=== PATIENT | male | born 1970 | race Caucasian/White ===

== ENCOUNTER 2021-12-03 07:09 | Outpatient (CLI) | payer OTHER, BC, SELFPAY ==
--- NOTE | 2021-12-03 07:15 | TELERAD_ITS ---
[address] [address] Phone:?[phone] Fax:?[phone] Referring Physician Information: Sridhar Mckeon M.D. [address] [facility] [address] Phone:?[phone] Fax:?[phone] Patient:Emili Sanchez D.O.B:?1970 Sex:?Male Phone:?[phone] [facility] MRN:?[id number] Exam Date:?12/03/2021 ? EXAM: MRI of the RIGHT SHOULDER, without contrast CLINICAL HISTORY: Right shoulder pain attributed to injury 10/16/2021. No history of previous surgery to the right shoulder. COMPARISONS: None available. TECHNICAL: MRI sequences of the right shoulder: Axials: PD, T2 Coronals: PD, STIR, T2 Sagittals: PD, T2 SEDATION: None CONTRAST: None FINDINGS: Bones: No fracture or suspicious bone marrow signal abnormality. Coracoacromial arch: Acromion: No os acromiale. Type II acromion. Acromiohumeral space: The bony distance is unremarkable. Coracohumeral space: The bony distance is unremarkable. Acromioclavicular joint: Mild to moderate degenerative changes with mild inferior hypertrophy. Coracoclavicular ligament: The coracoclavicular ligament is intact. Rotator cuff muscles/tendons: Supraspinatus: Approximately 1.4 cm in AP dimension by 0.7 cm in transverse dimension concealed low-grade partial-thickness intrasubstance tear within the supraspinatus tendon insertional footprint contacts the cortical insertional surface and is superimposed upon mild supraspinatus tendinopathy best seen on coronal series 4 images 11. No atrophy of the supraspinatus muscle. Infraspinatus: Mild tendinopathy. No atrophy of the infraspinatus muscle. Teres minor: The teres minor tendon and muscle are intact. Subscapularis: Approximately 1.0 cm in craniocaudad dimension by 2.5 cm in transverse dimension split longitudinal intrasubstance tear within the superior portion of the subscapularis tendon superimposed upon mild to moderate subscapularis tendinopathy. No atrophy of the subscapularis muscle. Labrum: Superior and posterosuperior labral fraying. Proximal biceps tendon, long head and short heads: Fraying and mild tendinopathy of the proximal long head of the biceps tendon, which is medially subluxed onto the lesser tuberosity extending into the split longitudinal intrasubstance subscapularis tendon tear best seen on axial series 3.1 images 15 through 25. The short head is intact. Glenohumeral joint: Small glenohumeral joint effusion. No full-thickness chondral defect or subchondral bone marrow edema/cystic change is seen. No convincing evidence of capsular edema or thickening although evaluation is suboptimal because of lack of joint distention. Bursae: Subacromial/subdeltoid: Mild bursitis. Subcoracoid: No convincing subcoracoid bursal thickening/bursitis. IMPRESSION: 1. Fraying and mild tendinopathy of the proximal long head of the biceps tendon, which is medially subluxed onto the lesser tuberosity extending into a split longitudinal intrasubstance subscapularis tendon tear. 2. Approximately 1.4 x 0.7 cm concealed low-grade partial-thickness intrasubstance tear within the supraspinatus tendon insertional footprint contacts the cortical insertional surface and is superimposed upon mild supraspinatus tendinopathy. 3. Mild infraspinatus tendinopathy. 4. No atrophy of the rotator cuff musculature. 5. Mild subacromial/subdeltoid bursitis. 6. Mild to moderate acromioclavicular joint osteoarthritis with mild inferior hypertrophy. 7. Small glenohumeral joint effusion. 8. Superior and posterosuperior labral fraying. RCB Electronically signed on 12/03/2021 9:03:00 AM by Cole Thomas M.D.
== END 2021-12-03 07:10 | disposition home or self-care (01) ==
PROVIDERS: PCP Family Medicine; Visit Provider Orthopaedic Surgery
DX: M25.511 Pain in right shoulder (principal); M19.011 Primary osteoarthritis, right shoulder; M25.411 Effusion, right shoulder
CPT/HCPCS: 73221

== ENCOUNTER 2022-06-09 06:23 | Day surgery (SDC) | payer OTHER, SELFPAY ==
[2022-06-09] VITALS (15 sets, daily range): BP systolic 110–125; BP diastolic 69–79; PULSE 60–72; RESP 14–16; TEMP 36.2–36.7; O2SAT 93–99; BMI 28.8
[2022-06-09] MEDS: LACTATED RINGERS 1000 ML 1,000 ML 100 ML IV ×2 (06:30→08:33)
[2022-06-09] MEDS: SODIUM CHLORIDE 0.9 % (FLUSH) 10 ML SYRINGE IVF (06:38)
[2022-06-09] MEDS: fentaNYL 100 MCG/2 ML inj IVP (08:06)
[2022-06-09] MEDS: MIDAZOLAM HCL 1 MG/ML inj IVP (08:06)
--- NOTE | 2022-06-09 08:07 | SUR.PREOP ---
TIME?OUT:?05 PT/RN/MDA?VERIFICATION?OF?SURGICAL?SITE right shoulder,?PROCEDURE nerve block,?AND?CONSENT OBTAINED?PRIOR?TO?INVASIVE?PROCEDURE.
[2022-06-09] MEDS: CEFAZOLIN 2 GM INJ IVP (08:10)
--- NOTE | 2022-06-09 09:48 | P.ORPRC_ITS ---
Procedure Note Date of procedure: 06/09/22 Procedure: PREOPERATIVE DIAGNOSIS: Right shoulder rotator cuff tear, AC joint arthrosis, biceps tendinopathy, upper subscap tear POSTOPERATIVE DIAGNOSIS: Right shoulder rotator cuff tear, AC joint arthrosis, biceps tendinopathy, upper subscap tear NAME OF OPERATION: Right shoulder arthroscopic subacromial decompression, distal clavicle excision, mini open rotator cuff repair, biceps tenodesis, subscap repair SURGEON: Sridhar Mckeon MD MANAGER STRATEGIC PARTNERSHIPS: Sangeetha Valdivia PA-C ANESTHESIA: Supraclavicular block plus general endotracheal ESTIMATED BLOOD LOSS: 5 mL COMPLICATIONS: None SPECIMENS: None DRAINS: None PREOPERATIVE ANTIBIOTICS: Ancef 2 grams INDICATIONS: The patient is a 51-year-old with a history of right shoulder pain secondary to the above diagnoses. Despite appropriate non operative management, they continue to have symptoms. Operative intervention was recommended. The risks, benefits and expected outcomes were discussed in detail. These included but were not limited to: Infection, bleeding, injury to blood vessel or nerve, venous thromboembolism. All questions were answered to their satisfaction. PROCEDURE: A supraclavicular block was placed by Anesthesia. General anesthesia was administered. The patient was placed in the high beach chair position. The right shoulder was prepped and draped in the usual sterile fashion. The glenohumeral joint was infiltrated with 20 mL of normal saline with epinephrine. The posterior portal was established, the arthroscope was introduced. The anterior portal was established, Diagnostic arthroscopy was performed with findings as follows: The biceps has a significant amount of intra-articular tendinopathy and medial instability. The anterior, posterior and superior labrum has some age-related degenerative tearing. Articular surfaces on the humeral head and glenoid are normal. There are no loose bodies. There is a near full-thickness tear of the supraspinatus and longitudinal splitting and tearing of the insertion of upper subscap. The biceps was tenotomized with the arthroscopic scissors. The arthroscope was placed in the subacromial space, the lateral portal was established. The Arthrex Friedens was used to dissect the acromion free. The CA ligament was recessed off the anterior acromion, the AC joint was exposed. The acromioplasty was performed with the bur in the posterior portal. The bur was then placed in the lateral portal and the lateral and anterior aspect of the acromion were resected. The undersurface of the distal clavicle was resected through the lateral portal. Finally, the bur was placed in the anterior portal and the remainder of the distal clavicle was resected for a total of 10 mm. An accessory anterolateral portal was placed. The subacromial/subdeltoid bursa was aggressively debrided. The few remaining fibers of the bursal surface of the insertion of the supraspinatus appear intact. Arthroscopic instruments were removed. The accessory anterolateral portal was extended proximally and distally, subcutaneous dissection was taken with electrocautery to the deltoid. The deltoid was divided in line with its fibers. The static retractor was placed. The subacromial/subdeltoid bursa was debrided with the Campos scissors. The bicipital groove was entered with cautery, delivering the biceps into the wound. A fiber link was placed in the biceps. The upper part of the lesser tuberosity was debrided with the Lempert rongeur. We released the few remaining fibers of the supraspinatus and infraspinatus, creating a full-thickness tear. The greater tuberosity was debrided to punctate bleeding bone using the arthroscopic bur and Lempert rongeur. The scorpion was used to place a FiberTape in the upper subscap and an inverted mattress fashion. This suture and the suture on the biceps replaced into a SwiveLock anchor, into the upper part of the lesser tuberosity, just off the articular surface. This completes the upper subscap repair and biceps tenodesis. Two Arthrex BioComposite SwiveLock anchors were placed just off the articular surface. Both limbs of the FiberWire and fiber tape were passed using the scorpion. A fiber link was placed in the leading edge of the rotator cuff x2. We tied the 2 central FiberWire sutures over the rotator cuff. We then proceeded with a lateral row of SwiveLock anchors x 2 crossing the FiberTape and incorporating the FiberWire and fiber link into each lateral row anchor. This provides an anatomic, watertight repair of the rotator cuff. There is no tension on the repair with the shoulder at 0? abduction. The wound was irrigated with normal saline off the pump. The deltoid was repaired with an 0 Vicryl in an interrupted [id number] fashion. Subcutaneous tissues were closed with a 3-0 Vicryl. Skin was closed with a 3-0 Monocryl in a subcuticular fashion. A dry dressing, polar care and sling were applied. Sponge and needle counts were correct x2. The patient tolerated the procedure well. There were no apparent complications. They were carefully transferred to the hospital bed and taken to the postanesthesia care unit in satisfactory condition. PLAN: The patient will be discharged to home. No active range of motion of the shoulder will be allowed for 6 weeks postoperatively. They can work on active range of motion of the elbow, wrist and fingers. They will follow up in the office next week for a wound check and an AP and transscapular Y-view of the shoulder prior to being seen.
--- NOTE | 2022-06-09 10:08 | W.ANESCHARGE ---
Anesthesia Charges Start Date/Time Anesthesia Start Date: 06/09/22 Anesthesia Start Time: 08:05 Stop Date/Time Anesthesia Stop Date: 06/09/22 Anesthesia Stop Time: 10:07 Summary Emergency: No
--- NOTE | 2022-06-09 10:46 | W.ANESCHARGE ---
Anesthesia Charges Start Date/Time Anesthesia Start Date: 06/09/22 Anesthesia Start Time: 08:05 Stop Date/Time Anesthesia Stop Date: 06/09/22 Anesthesia Stop Time: 10:07 Summary Emergency: No
--- NOTE | 2022-06-09 10:47 | P.NB_ITS ---
Nerve Block Nerve Block Time Seen by Provider: 08:05 Date Seen: 06/09/22 Type of block requested by surgeon for post-operative analgesia: supraclavicular Side: right Time out performed: Yes Verification of patient name: Yes Verification of date of : Yes Site marking: site marked Name of person performing procedure: Bassam Assistants, if any: Jamari Continuous monitoring Was continuous monitoring of O2 sat, B/P, threat monitoring analyst, recorded every 15 minutes?: Yes Procedure Checklist: sterile prep, needles and gloves Ultrasound guided. Images saved: Yes Medications given in 5ml increments after negative aspiration: Ropivicaine %: 0.5 mL: 20 Needle gauge: 22 Decadron (mg): 10 Precedex (mcg): 25 Patient tolerated procedure well: Yes Block Charges Block Charge (with Pro Fee): Brachial Plexus Use of Ultrasound Machine for Block: Yes- US Guidance/pain block
== END 2022-06-09 12:00 | disposition home or self-care (01) ==
PROVIDERS: PCP Family Medicine; Visit Provider Orthopaedic Surgery
PROC: (CPT 23412; principal; 2022-06-09 07:45)
DX: M75.101 Unspecified rotator cuff tear or rupture of right shoulder, not specified as traumatic (principal); M75.21 Bicipital tendinitis, right shoulder; M19.011 Primary osteoarthritis, right shoulder
CPT/HCPCS: 29826; 29824; 29828; 23412; 01630; 64415; 76942; C1713; J0690; J1100; J2250; J2405; J2704; J2795; J3010; J7120

== ENCOUNTER 2023-01-21 08:45 | Outpatient (RCR) | payer OTHER, SELFPAY | END 2023-03-09 10:18 | disposition home or self-care (01) | PROVIDERS: PCP Family Medicine; Visit Provider Physician Assistant Surgical | DX: Z98.890 Other specified postprocedural states (principal); Z51.89 Encounter for other specified aftercare | CPT/HCPCS: 97110; 97112; 97140; 97161; 97530 ==

== ENCOUNTER 2025-01-12 20:28 | Emergency (ER) | payer OTHER, SELFPAY ==
--- OUTSIDE RECORDS SUMMARY | 2025-01-12 20:30 | XMS_ITS | Clinical Summary ---
Author Organization [facility] er Address [address] [place] [address] Care Team Providers Care Head Inspector And Center Marker Name Role Phone Shantel Resendiz APRN Primary Care Provider Allergies Active Allergy Reactions Criticality Noted Date Comments Other 08/25/2018 Bandaide Medications Ibuprofen 200 MG capsule Take 600 mg by mouth every 6 (six) hours if needed (for pain) 3 Active valACYclovir (VALTREX) 1 g tabletIndications:H istory of cold sores TAKE TWO TABLETS BY MOUTH TWICE A DAY NEEDED FOR COLD SORES. On file. 12 tablet 3 4 Active omeprazole (PriLOSEC) [address] capsuleIndications: Gastroesophageal reflux disease without esophagitis TAKE ONE CAPSULE BY MOUTH EVERY DAY, DO NOT CRUSH OR CHEW 90 capsule 5 Active sildenafil (VIAGRA) 100 MG tabletIndications:E rectile dysfunction, unspecified erectile dysfunction type TAKE ONE TABLET BY MOUTH ONCE DAILY IF NEEDED. TAKE ONE HOUR PRIOR TO SEXUAL ACTIVITY. 12 tablet 5 Active atorvastatin (LIPITOR) 20 MG tabletIndications:M ixed hyperlipidemia TAKE ONE TABLET BY MOUTH EVERY DAY 90 tablet 5 Active Hospital, Clinic, or Other Facility Administered Medication Ordered Dose Route Frequency Start Date End Date Status lidocaine 1% (XYLOCAINE) 1 % injection 10 mgIndications:Lateral epicondylitis of right elbow 10 mg INFILTRATION Once 02/20/2019 Active triamcinolone acetonide (KENALOG-40) 40 MG/ML injection 20 mgIndications:Lateral epicondylitis of right elbow 20 mg IX Once 02/20/2019 Active Active Problems Problem Noted Date Diagnosed Date Encounter for wellness examination 11/02/2023 Erectile dysfunction 11/02/2023 Assessment & Plan (11/02/2023 12:32 PM CDT): Start on Viagra as needed for sexual dysfunction Chronic fatigue 11/02/2023 Assessment & Plan (11/02/2023 12:14 PM CDT): Declines referral to sleep medicine at this time Gastroesophageal reflux disease without esophagi tis 11/02/2023 Assessment & Plan (11/02/2023 12:31 PM CDT): Continue on Omeprazole (Prilosec) 20 mg daily History of cold sores 11/02/2023 Assessment & Plan (11/02/2023 12:32 PM CDT): Continue Valtrex as needed Numbness and tingling in both hands 11/02/2023 Assessment & Plan (11/02/2023 12:15 PM CDT): Try sleeping with bilateral wrist/hand braces If continued concerns/issues or weakness, will refer for a EMG Immunization due 11/02/2023 Assessment & Plan (11/02/2023 12:26 PM CDT): Received Covid and Pneumonia vaccines updated today Impacted foreign body in esophagus 03/17/2021 Overweight (BMI 25.0-29.9) 03/17/2021 Assessment & Plan (11/02/2023 12:29 PM CDT): Obesity is unchanged. Discussed the patient's BMI. The BMI is above average. The patient received dietary education, feeding regime, and exercise education because they have an above normal BMI.. General weight loss/lifestyle modification strategies discussed (elicit support from others; identify saboteurs; non-food rewards, etc). Try eating more protein, vegetables and non-sugared fruits. Eat snacks such as nuts, vegetables/fruits. Stay away from fast foods, fatty and/or greasy foods and snacks. Family history of prostate cancer 03/17/2021 Schatzki's ring 09/20/2018 Overview (03/17/2021): EGD 08/2018 ring, dilalted with 54 F, 57 F, 60 F Savory dilators Low back pain 08/03/2017 GERD without esophagitis 02/24/2016 Assessment & Plan (11/02/2023 12:30 PM CDT): Continue on Omeprazole (Prilosec) 20 mg daily Mixed hyperlipidemia 02/24/2016 Assessment & Plan (11/02/2023 12:27 PM CDT): Lipid abnormalities are improving with treatment. Pharmacotherapy as ordered. Lipids will be reassessed in 1 year. Continue Atorvastatin (Lipitor) 20 mg as needed Gout 09/09/2015 Resolved Problems Problem Noted Date Diagnosed Date Resolved Date H/O cold sores 03/17/2021 11/02/2023 Assessment & Plan (11/02/2023 12:27 PM CDT): Continue Valtrex as needed Encounters Date Type Department Care Team Description 11/28/2024 Refill [facility] [address] [facility] [address] [place] [address] Shantel Resendiz APRN Gastroesophageal reflux disease without esophagitis; Erectile dysfunction, unspecified erectile dysfunction type; Mixed hyperlipidemia from Last 3 Months Immunizations Immunization Administration Dates Next Due COVID-19, mRNA, LNP-s, PF, lotus-succrose, 30mcg/0.3mL, COMIRNATY Ages 12+ 11/02/2023 Flu Vaccine 50-64yrs Flublok (Egg Free) 03/17/2021 H1N1 Inj 04/26/2009 INFLUENZA QUADRIVALENT MDV (IM) 05/17/20,03/29/2020,05/19/2019,2012 Influenza 6mo-64yrs Quad Pre servative Free IM 03/17/2021,04/28/2018,04/21/2017,2015,04/26/2009 Influenza, Split Virus, Triv alent, Preservative 02/27/2015,04/20/2006 Pneumococcal Conjugate PCV20 11/02/2023( Deferred: Not available from trail maintenance worker) TD Preservative Free 09/13/1999 Tdap 08/25/2018,07/08/2009 Zoster Recombinant 08/19/2021,03/20/2021 Family History Medical History Relation Comments Autoimmune disease Sister Relation Status Comments Brother Alive Father Alive Mother Alive Sister Alive Son 1 Alive Son 2 Alive Son 3 Alive Social History Tobacco Use Types Packs/Day Years Used Date Smoking Tobacco: Never Smokeless Tobacco: Never Tobacco Cessation:Counseling Given: Not Answered Alcohol Use Standard Drinks/Week Comments Yes 0 (1 standard drink = 0.6 oz pur e alcohol) social Social Connection and Isolat ion Panel [NHANES] Answer Date Recorded In a typical week, how many times do you talk on the phone with family, friends, or neighbors? Once a week 11/01/2023 How often do you get togethe r with friends or relatives? Once a week 11/01/2023 How often do you attend [facility] or muslim services? More than 4 times per year 11/01/2023 Do you belong to any clubs o r organizations such as jain groups, unions, fraternal or athletic groups, or school groups? Yes 11/01/2023 How often do you attend meet ings of the clubs or organizations you belong to? More than 4 times per year 11/01/2023 Are you , , di vorced, , never , or living with a partner? 11/01/2023 AUDIT-C Answer Date Recorded Q1: How often do you have a drink containing alc ohol? 2-3 times a week 11/01/2023 Q2: How many drinks containi ng alcohol do you have on a typical day when you are drinking? 1 or 2 11/01/2023 Q3: How often do you have si x or more drinks on one occasion? Monthly 11/01/2023 Overall Financial Resource Strain (CARDIA) Answe r Date Recorded How hard is it for you to pa y for the very basics like food, housing, medical care, and heating? Not very hard 11/01/2023 PHQ-2 Answer Date Recorded PHQ-9 Total Score 6 11/01/2023 [facility] - Occupational Stress Questionnaire Answer Date Recorded Do you feel stress - tense, restless, nervous, or anxious, or unable to sleep at night because your mind is troubled all the time - these days? Only a little 11/01/2023 Exercise Vital Sign Answer Date Recorde d On average, how many days pe r week do you engage in moderate to strenuous exercise (like a brisk walk)? 2 days 11/01/2023 On average, how many minutes do you engage in exercise at this level? 20 min 11/01/2023 Hunger Vital Sign Answer Date Recorded Within the past 12 months, y ou worried that your food would run out before you got the money to buy more. Never true 11/01/19 Within the past 12 months, t he food you bought just didn't last and you didn't have money to get more. Never true 11/01/2023 PRAPARE - Transportation Answer Date Re corded In the past 12 months, has l ack of transportation kept you from medical appointments or from getting medications? No 07/2023 In the past 12 months, has l ack of transportation kept you from meetings, work, or from getting things needed for daily living? No 11/01/2023 Housing Stability Vital Sign Answer Sandoval e Recorded In the last 12 months, was t here a time when you were not able to pay the mortgage or rent on time? No 11/01/2023 In the past 12 months, how m any times have you moved where you were living? 0 11/01/2023 At any time in the past [address] [facility], were you homeless or living in a usp (including now)? No 11/01/2023 Sex and Gender Information Value Date Recorded Sex Assigned at Not on file Legal Sex Male 7:53 PM CDT Gender Identity Not on file Sexual Orientation Not on file Last Filed Vital Signs Vital Sign Reading Time Taken Comments Blood Pressure 110/68 11/02/2023 8:05 AM CDT Pulse 80 11/02/2023 8:05 AM CDT Temperature 36.6 C (97.9 F) 11/02/2023 8:05 AM CDT Respiratory Rate 16 11/02/2023 8:05 AM CDT Oxygen Saturation 96% 11/02/2023 8:05 AM CDT Inhaled Oxygen Concentration - - Weight 103 kg (226 lb) 11/02/2023 8:05 AM CDT Height 190.5 cm (6' 3) 11/02/2023 8:05 AM CDT Body Mass Index 28.25 11/02/2023 8:05 AM CDT Plan of Treatment Health Maintenance Due Date Last Done Comments CT Colonography 1969 FIT-DNA 1970 Sigmoidoscopy 1970 iFOBT 1970 Pneumococcal Vaccine: 50+ Years (1 of 2 - PCV) 1988 COVID-19 Vaccine (4 - season) 2024 11/02/2023, 10/15/2020, 09/24/2020 Influenza Vaccine (#1) 2025 , 03/17/2021, 03/17/2021, Additional history exists DTaP,Tdap,and Td Vaccines (3 - Td or Tdap) 08/25/2028 08/25/2018, 07/08/2009, 09/13/1999 Colonoscopy 01/29/2030 01/30/2020 Colorectal Cancer Screening 01/29/2030 Zoster Vaccines Completed 08/19/2021, 03/20/2021 HPV Vaccines Aged Out No longer eligi ble based on patient's age to complete this topic Procedures Procedure Name Priority Date/Time Associated Diagnosis Comments COLONOSCOPY Routine 01/30/2020 from Last 3 Months or Most Recently Relevant to Health Maintenance Results * Colonoscopy (01/30/2020) Colonoscopy [facility] Historical Provider HEALTH MAINTENANCE Final Result from Last 3 Months or Most Recently Relevant to Health Maintenance Insurance [facility] Member Subscriber Plan / Payer (Ef fective 2021-Present) Name:Dwight Leija Relation to Subscriber:Employee Name:[employer] (Work) Address: [address] [place] [address] Payer ID:[id number] Group ID:Not on file Type:Not on file Address: [place] [address] Care Teams Head Inspector And Center Marker Relationship Specialty Start Date End Date Shantel Resendiz APRN [address] [place] [id number] PCP - General 03/18/23
--- OUTSIDE RECORDS SUMMARY | 2025-01-12 20:30 | XMS_ITS | Encounter Summary ---
Author Organization [facility] er Address [address] [place] [address] Care Team Providers Care Industrial Chemicals Supervisor Name Role Phone Shantel Resendiz APRN Primary Care Provider Reason for Visit * Reason Comments Med Refill Encounter Details Date Type Department Care Team (Late st Contact Info) Description 11/28/2024 Refill [place] [address] [place] [address] Shantel Resendiz APRN [address] [place] [id number] Gastroesophageal reflux disease without esophagitis; Erectile dysfunction, unspecified erectile dysfunction type; Mixed hyperlipidemia Social History Tobacco Use Types Packs/Day Years Used Date Smoking Tobacco: Never Smokeless Tobacco: Never Alcohol Use Standard Drinks/Week Comments Yes 0 [...] week 11/01/2023 How often do you attend chur ch or taoist services? More than 4 times per year 11/01/2023 Do you belong to any clubs o r organizations such as worship groups, unions, fraternal or athletic groups, or [...] Date Recorded PHQ-9 Total Score 6 11/01/2023 [facility] - Occupational Stress [...] money to buy more. Never true 11/01/19 24 Within the past 12 months, t he [...] any time in the past 12 m [facility], were you homeless or living in a detention (including now)? No 11/01/2023 Sex and Gender Information Value Date Recorded Sex Assigned at Not on file Legal Sex Male 7:53 PM CDT Gender Identity Not on file Sexual Orientation Not on file documented as of this encounter Miscellaneous Notes * Telephone Encounter - Jailyn Caruso - 12/14/2024 12:50 PM CDT Portal message sent to patient regarding request for an appointment was read by patient. No response via telephone. * Telephone Encounter - Leighann Mobley LPN - 12/05/2024 9:46 AM CDT Patient is due for annual exam. PSR: Please contact patient to assist with scheduling. Upcoming appointment with provider: Visit date not found Last visit in provider department: 11/02/2023 Last visit requested medication was discussed: 11/02/2023, annual exam Last Rx: Omeprazole #90, 3 refills 11/02/2023 Sildenafil #12, 3 refills 11/02/2023 Atorvastatin #90, 3 refills 11/02/2023 Requested Prescriptions Pending Prescriptions Disp Refills omeprazole (PriLOSEC) [address] capsule [Pharmacy Med Name: OMEPRAZOLE 20MG CPDR] 90 capsule 3 Sig: TAKE ONE CAPSULE BY MOUTH EVERY DAY, DO NOT CRUSH OR CHEW sildenafil (VIAGRA) 100 MG tablet [Pharmacy Med Name: SILDENAFIL CITRATE 100MG TABS] 12 tablet 3 Sig: TAKE ONE TABLET BY MOUTH ONCE DAILY IF NEEDED. TAKE ONE HOUR PRIOR TO SEXUAL ACTIVITY. atorvastatin (LIPITOR) 20 MG tablet [Pharmacy Med Name: ATORVASTATIN CALCIUM 20MG TABS] 90 tablet 3 Sig: TAKE ONE TABLET BY MOUTH EVERY DAY Labs: Results outdated Vitals: BP Readings from Last 2 Encounters: 11/02/23 110/68 01/19/23 133/89 documented in this encounter Plan of Treatment Not on file documented as of this encounter Visit Diagnoses Diagnosis Gastroesophageal reflux disease without esophagitis Esophageal reflux Erectile dysfunction, unspecified erectile dysfunction type Mixed hyperlipidemia documented in this encounter Care Teams Industrial Chemicals Supervisor Relationship Specialty Start Date End Date Shantel Resendiz, TUB MENDER [address] [place] [id number] PCP - General 03/18/23 documented as of this encounter
--- OUTSIDE RECORDS SUMMARY | 2025-01-12 20:30 | XMS_ITS | Clinical Summary ---
Author Organization [facility] Address [facility] [place] [address] Care Team Providers Care Senior Software Engineer Name Role Phone Nani Leon NP Primary Care Provider Amy vailable Allergies No known active allergies Medications OMEPRAZOLE 20 MG CAP, DELAYED RELEASE take 1 capsule (20 mg) by oral route once daily before a meal 0 11/06/2006 Active atorvastatin (LIPITOR) 10 mg tabletIndicatio ns:Esophageal dysphagia,Schat zki's ring Take 1 tablet by mouth at bedtime. 30 tablet 09/16/2018 Active Active Problems Problem Noted Date Diagnosed Date Schatzki's ring 09/20/2018 Overview (09/20/2018): EGD 08/2018 ring, dilalted with 54 F, 57 F, 60 F Savory dilators Social History Tobacco Use Types Packs/Day Years Used Date Smoking Tobacco: Never Smokeless Tobacco: Never Tobacco Cessation:Counseling Given: Yes Alcohol Use Standard Drinks/Week Comments Yes 0 (1 standard drink = 0.6 oz pur e alcohol) occ Sex and Gender Information Value Date Recorded Sex Assigned at Male 08/25/2021 2:38 PM CDT Legal Sex Male 7:17 AM [employer] Gender Identity Male 08/25/2021 2:38 PM CDT Sexual Orientation Straight 08/25/2021 2: 38 PM CDT Obstetrics History Last Filed Vital Signs Vital Sign Reading Time Taken Comments Blood Pressure 126/86 04/08/2021 2:44 PM [employer] tow er Pulse 89 04/08/2021 2:44 PM [employer] Temperature 36.6 C (97.9 F) 04/18/2008 4:54 PM [employer] Respiratory Rate - - Oxygen Saturation 97% 04/08/2021 2:44 PM [employer] Inhaled Oxygen Concentration - - Weight 102.1 kg (225 lb) 04/08/2021 2:44 PM [employer] Height - - Body Mass Index - - Plan of Treatment Health Maintenance Due Date Last Done Comments Tetanus booster 1980 Depression screening for age 12+ 1981 HIV for age 15-65 1984 BMI (ht and wt on same day) for age 18+ 12/12/1987 Hepatitis C screening for age 18-79 12/12/1987 Hepatitis B series for 19+ ( 1 of 3 - 19+ 3-dose series) 1988 Colonoscopy through age 75 2014 Lipids for age 45-75 2014 Pneumococcal series for age 50+ (1 of 1 - PCV) 12/12/2019 Zoster (shingles) series for age 50+ (1 of 2) 12/12/2019 COVID-19 vaccine series (2023- season) 2024 11/02/2023, 10/15/2020, 09/24/2020 Influenza Vaccine (#1) 2025 Insurance Care Teams Senior Software Engineer Relationship Specialty Start Date End Date Nnai Leon, CAMPUS COORDINATOR [address] [place] [address] PCP - General Emergency Medicine 09/16/18
[2025-01-12 20:34] VITALS: BP 147/91; RESP 18; TEMP 36.7; O2SAT 97
--- NOTE | 2025-01-12 21:24 | ED_ITS ---
HPI - General Adult General Date Seen: 01/12/25 Chief complaint: Laceration/Wound Stated complaint: R hand lac Time Seen by Provider: 01/12/25 20:29 History of Present Illness HPI narrative: This is a very pleasant 54-year-old gentleman with a history of GERD and dyslipidemia. No history of diabetes, cancer, or immunosuppression. He is up-to-date on tetanus (2019). He presents to the ER today with an injury to his right hand index finger. He was using Axe chop wood today. He is not exactly sure how he injured his finger but he apparently tried to set acts down and then it fell about 12 in and the blade of the axis struck him directly on the dorsum of the PIP joint of his right index finger. He noticed immediate onset of dark red nonpulsatile bleeding that was controlled by direct pressure and elevation. He has no associated numbness. He is able to flex and extend his finger but has not tried to fully flex it forward because it is not multiple the wound open. He came directly here to the ER. He is not allergic to local anesthetics. Related Data Home Medications ?Medication ?Instructions ?Recorded ?Confirmed atorvastatin 20 mg tablet 20 mg PO 12/17/21 10/21/22 omeprazole 20 mg capsule,delayed 20 mg PO .Daily as ne eded PRN 12/17/21 10/21/22 release Allergies Allergy/AdvReac Type Severity Reaction Status Date / Time No Known Allergies Allergy Verified 10/21/22 13:49 [facility] Medical History Environmental allergies (10/30/11) ?Z91.09 - Other allergy status, other than to drugs and biological substances (ICD-10) Gastroesophageal reflux (10/30/11) ?K21.9 - Gastro-esophageal reflux disease without esophagitis (ICD-10) Hyperlipemia ?E78.5 - Hyperlipidemia, unspecified (ICD-10) Right rotator cuff tendinitis ?M75.81 - Other shoulder lesions, right shoulder (ICD-10) Surgical History H/O sinus surgery (10/30/11) ?Z98.890 - Other specified postprocedural states (ICD-10) Hx of appendectomy ?Z90.49 - Acquired absence of other specified parts of digestive tract (ICD- 10) Status post arthroscopy of right shoulder (06/09/22) ?Z98.890 - Other specified postprocedural states (ICD-10) Social History (Updated 04/01/22 @ 15:24 by Melissa Clancy ~ [facility], [facility]) Smoking Status: Never smoker Do you use any of these nicotine containing products: None Second hand tobacco smoke exposure: No How often do you have a drink containing alcohol: monthly or less How many standard drinks containing alcohol do you have on a typical day: 1 or 2 AUDIT-C Alcohol total score: 1 Non-prescribed substance use: denies use Caffeine: Yes service: No Exam Narrative: Exam Narrative: Constitutional: Appears well-developed and well-nourished. Active. Non-toxic appearing. HENT: Head: Atraumatic. No signs of injury. Nose: No nasal discharge. Mouth/Throat: Mucous membranes are moist. No trismus Eyes: Conjunctivae normal and EOM are normal. Pupils are equal, round, and reactive to light. Right eye exhibits no discharge. Left eye exhibits no discharge. No icterus. Neck: Normal range of motion. Neck supple. No adenopathy. No stridor. Cardiovascular: Normal rate and regular rhythm. No murmur heard. No murmurs, rubs, or gallops. Brisk distal capillary refill Pulmonary/Chest: Effort normal. No stridor. No respiratory distress. Musculoskeletal: Normal except for right hand index finger Normal range of motion. No edema. No tenderness. No deformity. On the right index finger there is a 2.5 cm laceration that extends across the dorsum of the finger running diagonally for over the dorsum of the PIP joint. He has no active bleeding. He has intact radial and ulnar digital nerve distal sensory function. He does have ability to flex and extend the D IP, PIP MCP joint. After placement of a finger tourniquet got an expected in a bloodless field I do see that he has injured part of the extensor tendon on the ulnar side of the finger. It does not look like this laceration extends into the PIP joint. No bony deformity or rotation to suggest fracture. Neurological: Alert. Normal strength. No cranial nerve deficit or sensory deficit. Coordination normal. GCS eye subscore is 4. GCS verbal subscore is 5. GCS motor subscore is 6. Skin: Skin is warm. No rash noted. Const: Vital Signs, click to edit/add: Vital Signs - 24 hr 01/12/25 20:34 Temperature 98.0 F Respiratory Rate 18 Blood Pressure [Ri ght Upper Arm] 147/91 H Pulse Oximetry 97 Oxygen Delivery Me thod Room Air Course Vital Signs Vital signs: Initial Vital Signs Temperature 98.0 F 01/12/25 20:34 Temperature Source Temporal Artery Scan 01/12/25 20:34 Respiratory Rate 18 01/12/25 20:34 Blood Pressure 147/91 H 01/12/25 20:34 Blood Pressure Mean 109 H 01/12/25 20:34 Blood Pressure Position Sitting 01/12/25 20:34 Pulse Oximetry 97 01/12/25 20:34 Oxygen Delivery Method Room Air 01/12/25 20:34 Vital Signs Temperature 98.0 F 01/12/25 20:34 Respiratory Rate 18 01/12/25 20:34 Blood Pressure 147/91 H 01/12/25 20:34 Pulse Oximetry 97 01/12/25 20:34 Oxygen Delivery Method Room Air 01/12/25 20:34 Temperature 98.0 F 01/12/25 20:34 Respiratory Rate 18 01/12/25 20:34 Blood Pressure 147/91 H 01/12/25 20:34 Pulse Oximetry 97 01/12/25 20:34 Oxygen Delivery Method Room Air 01/12/25 20:34 Medical Decision Making MDM Narrative Medical decision making narrative: Findings and exam are consistent with an right index finger laceration which was repaired as noted above. There is no evidence at this time to suggest any associated fracture or foreign body. He has intact digital nerve function and no arterial bleeding. Brisk distal cap refill. He does have evidence for an extensor tendon injury on my inspection of the wound but actually has function of the extensor tendon of the PIP and PIP. We close the skin as noted above. The patient is to follow up for suture removal as instructed in 10 days. Indications to seek urgent reevaluation and signs of infection (including but not limited to increasing pain, redness, swelling, fevers, and drainage) were reviewed. Tetanus is up-to-date. Because of the depth of the laceration and the involvement of the tendon will start him on prophylactic antibiotics. Will place the patient into an Alumafoam splint. Recommend follow-up for a wound check to recheck the extensor tendon with the orthopedic clinic in 3-4 days. An understanding of the discharge instructions and need for follow up were verbally confirmed. Instymeds for cephalexin. 500 mg t.i.d. for 7 days Discharge Plan Discharge Clinical Impression: Finger laceration, Extensor tendon disruption Patient Disposition: Home, Self-Care Condition: Stable Instructions: Finger Laceration (ED) Additional Instructions: As we discussed, please return to the ER right away if you have any problems, especially if he notice signs of infection such as redness, swelling, or pus draining from your wound. To care for your injury: 1. Try to keep your finger knuckle immobilized and wear the splint during the day. Trying to bend her finger can pull the wound apart and could potentially displace the injured tendon on the back of your finger. 2. Removed the dressing and gently clean the wound once per day. Use a gauze or washcloth with warm water and gently clean off any debris on the outside of the skin. You do not have to scrub the wound or use bleach or hydrogen peroxide. After the wound is clean, gently dried and reapply antibiotic ointment and a dressing. 3. Take the preventative antibiotics starting tonight to help prevent infection. 4. You need to have your stitches removed in 10 days 5. Please follow-up with the [facility] for a wound check next Wednesday or Wednesday and have them double-checked the extensor tendon. To schedule your appointment call [phone] Prescriptions: No Action atorvastatin 20 mg tablet 20 mg PO omeprazole 20 mg capsule,delayed release(DR/EC) 20 mg PO .Daily as needed PRN Follow Up/Referrals: Arian Walton MD [Primary Care Provider, Family Practice] Stand Alone [facility]: [facility] Instructions Procedures Laceration Right index finger laceration: Verification/time out: correct patient, correct site and correct procedure Site: hand Side (If applicable): right Size (cm): 2.5 Description: linear Depth: involves tendon Local Anesthetic: bupivacaine 0.25% Amount of anesthesia used (mL): 6 Pre-repair: wound explored and irrigated extensively Skin layer closed with: nylon Size (cm): 5-0 Number of sutures: 7 Technique: simple, interrupted
== END 2025-01-12 21:32 | disposition home or self-care (01) ==
PROVIDERS: Emergency Provider Emergency Medicine; PCP Family Medicine
DX: S61.210A Laceration without foreign body of right index finger without damage to nail, initial encounter (principal); W26.9XXA Contact with unspecified sharp object(s), initial encounter
CPT/HCPCS: 12001; 80053; 81001; 83605; 84145; 86140; 87040; 87631; 99282; 99283

== ENCOUNTER 2025-03-05 08:36 | Outpatient (CLI) | payer OTHER, SELFPAY | END 2025-03-05 08:37 | disposition home or self-care (01) | PROVIDERS: PCP Nurse Practitioner Family; Visit Provider Nurse Practitioner Family | DX: D50.9 Iron deficiency anemia, unspecified (principal); E78.5 Hyperlipidemia, unspecified; R73.9 Hyperglycemia, unspecified; Z12.5 Encounter for screening for malignant neoplasm of prostate; Z13.0 Encounter for screening for diseases of the blood and blood-forming organs and certain disorders involving the immune mechanism | CPT/HCPCS: 80053; 80061; 85025; G0103 ==

== ENCOUNTER 2025-04-17 12:42 | Outpatient (CLI) | payer OTHER, SELFPAY ==
--- NOTE | 2025-04-17 13:00 | MR_ITS ---
EXAM: MRI of the RIGHT 2ND FINGER, without contrast CLINICAL INFORMATION: Male, 54 years old, with right index finger laceration at the PIP joint. INDICATION: Evaluate laceration. PRIOR SURGERY: None reported. PLAIN FILMS: None available. COMPARISONS: No prior MRIs available. TECHNICAL INFORMATION: Using a 1.5T MR scanner and a localizing surface coil: sagittals: PD, T2 coronals: T1, PD, T2, STIR axials: PD, T2, PDFS SEDATION: None. CONTRAST: None. FINDINGS: Bones: Unremarkable, without stress/occult fracture, marrow edema or mass. Joints: Intact throughout without pathologic narrowing or effusion. Tendons: Full thickness disruption of the central slip of the 2nd digit at the level of the 2nd metacarpal neck with approximately 7 mm of retraction (sagittal PD series 12.1 image 6 and axial PDFS series 7 images 18-21). The medial and lateral components of the terminal tendon remaining intact and insert normally on the distal phalanx. The remainder of the visualized flexor and extensor tendons are intact, without rupture or tendinopathy, tenosynovitis or longitudinal splitting. Soft tissues: Moderate soft tissue thickening of the dorsal soft tissues of the 2nd digit at the level of the PIP joint with suspected laceration injury (sagittal PD series 12.1 image 7). Collateral ligaments: Mild-moderate thickening of the radial and ulnar collateral ligaments of the 2nd PIP joint (coronal PD series 10.1 images 7-9). The remainder of the collateral ligaments are otherwise unremarkable. IMPRESSION: 1. Findings in keeping with a laceration injury of the 2nd digit at the level of the PIP joint, with transection of the central slip of the extensor tendons at the level of the metacarpal neck, with 7 mm of retraction. However, in the medial and lateral components of the terminal tendon remaining intact and insert normally on the distal phalanx. 2. Grade 1 sprains of the radial & ulnar collateral ligaments of the PIP joint. 3. No fracture or osseous stress reaction. 4. No evidence of arthritis. BC Electronically signed on 04/18/2025 9:03:00 AM by Glen Guevara M.D.
== END 2025-04-17 12:43 | disposition home or self-care (01) ==
LOC: MRI 12:42
PROVIDERS: PCP Nurse Practitioner Family; Visit Provider Physician Assistant Surgical
DX: S61.411A Laceration without foreign body of right hand, initial encounter (principal); S66.821A Laceration of other specified muscles, fascia and tendons at wrist and hand level, right hand, initial encounter; S53.31XA Traumatic rupture of right ulnar collateral ligament, initial encounter
CPT/HCPCS: 73218

== ENCOUNTER 2025-05-09 16:45 | Outpatient (RCR) | payer OTHER, SELFPAY | END 2025-05-10 08:02 | disposition home or self-care (01) | PROVIDERS: PCP Family Medicine; Visit Provider Physician Assistant Surgical | DX: S61.210D Laceration without foreign body of right index finger without damage to nail, subsequent encounter (principal); Z51.89 Encounter for other specified aftercare | CPT/HCPCS: 97035; 97110; 97140; 97165; X5282 ==